=== PATIENT | male | born 1965 | race Caucasian/White ===

== ENCOUNTER 2021-03-22 00:13 | Inpatient (IN) | payer BC ==
[~2021-03-22] VITALS: Ht 182.9 cm; Wt 111.5 kg
[~2021-03-22 00:13] MED LIST: ONDA4TAB6 PO
[2021-03-22] MEDS ORDERED: ketorolac trometh. 30mg/ml inj. IV STA (00:29)
[2021-03-22] MEDS ORDERED: ondansetron/PF 4mg/2ml inj IV STA ×2 (00:29→03:26)
[2021-03-22] MEDS ORDERED: normal saline 1000ml 1,000 ML IVB ONE (00:30)
[2021-03-22 00:40] LABS: BASOPHILS # (AUTO) 0.1 X10'3 (0-0.2); EOSINOPHILS # (AUTO) 0.2 X10'3 (0-0.9); HEMATOCRIT 44.9 % (42.0-52.0); HEMOGLOBIN 15.6 g/dl (14.0-17.9); LYMPHOCYTES # (AUTO) 3.3 X10'3 (1.1-4.8); MEAN CORPUSCULAR HEMOGLOBIN 31.5 PG (27.0-31.0); MEAN CORPUSCULAR HGB CONC 34.7 g/dL (33.0-36.5); MEAN CORPUSCULAR VOLUME 90.9 FL (78-98); MEAN PLATELET VOLUME 9.3 FL (7.4-10.4); MONOCYTES # (AUTO) 0.9 X10'3 (0-0.9); MONOCYTES % (AUTO) 9.6 % (2-12); NEUTROPHILS # (AUTO) 5.4 X10'3 (1.8-7.7); NEUTROPHILS % (AUTO) 54.4 % (42-75); PLATELET COUNT 236 X10'3 (140-440); RED BLOOD COUNT 4.94 X10'6 (4.70-6.10); RED CELL DISTRIBUTION WIDTH 13.2 % (11.5-14.5); WHITE BLOOD COUNT 9.9 X10'3 (4.5-11.0)
[2021-03-22 00:53] LABS: ALANINE AMINOTRANSFERASE 71 U/L (12-78); ALBUMIN 4.2 G/DL (3.4-5.0); ALBUMIN/GLOBULIN RATIO 1.3 (1.1-1.5); ALKALINE PHOSPHATASE 77 IU/L (46-116); ANION GAP 8 (8-16); ASPARTATE AMINO TRANSFERASE 59 U/L (10-37); BILIRUBIN,TOTAL 0.4 MG/DL (0.1-1.0); BLOOD UREA NITROGEN 27 MG/DL (7-18); BUN/CREATININE RATIO 24.1 (5.4-32.0); CALCIUM 8.9 MG/DL (8.5-10.1); CHLORIDE 104 MMOL/L (99-107); CREATININE 1.12 MG/DL (0.60-1.10); GLUCOSE 132 MG/DL (70-104); SODIUM 140 MMOL/L (135-145); TOTAL CARBON DIOXIDE 27.7 MMOL/L (24-32); TOTAL PROTEIN 7.5 G/DL (6.4-8.2); eGFR 68 ML/MIN
[2021-03-22 01:39] LABS: CLARITY,URINE CLEAR (Clear); COLOR,URINE YELLOW (Yellow); GLUCOSE, URINE NEGATIVE (Neg); KETONES,URINE 15 mg/dl (Neg); LEUKOCYTE ESTERASE ,URINE NEGATIVE (Neg); NITRITES, URINE NEGATIVE (Neg); OCCULT BLOOD,URINE LARGE (Neg); PH,URINE 6.5 (4.8-8.0); PROTEIN,URINE NEGATIVE (Neg); UROBILINOGEN,URINE 0.2 E.U/dL (0.2-1.0)
[2021-03-22 01:59] LABS: UA COLLECTION TYPE VOIDED
[2021-03-22 02:07] LABS: BACTERIA,URINE NONE SEEN /HPF (Neg); MUCUS STRANDS NONE SEEN /LPF (Neg); RBC,URINE 20-50 /HPF (0-2); SQUAMOUS EPITHELIAL CELL,UR FEW /LPF (FEW); TRANSITIONAL EPI CELLS,URINE FEW /HPF; WBC,URINE 0-4 /HPF (0-4)
[2021-03-22] MEDS ORDERED: meperidine/PF 50mg/ml syringe IV PRN (03:25)
--- NOTE | 2021-03-22 03:26 | NUR ---
his pain and nausea is coming back. Dr Patrick was in to evaluate the patient and ordered pain meds, pt than told me his nausea is returning, so Dr Patrick asked I order some zofran, so done.
[2021-03-22] MEDS ORDERED: LISI20TA28 PO (03:41)
[2021-03-22] MEDS ORDERED: HYDROmorphone inj. 0.5 MG/0.5 ML DISP.SYRIN IV PRN (03:45)
[2021-03-22] MEDS ORDERED: HYDROcodone/acetaminophen 5mg/325mg tablet PO PRN (03:45)
[2021-03-22] MEDS ORDERED: diphenhydrAMINE 25mg capsule PO PRN (03:45)
[2021-03-22] MEDS ORDERED: morphine 2 MG/ML inj. syringe IV PRN (03:45)
[2021-03-22] MEDS ORDERED: mag hydrox/Alum hydrox/simeth 30ml oral suspension PO PRN (03:45)
[2021-03-22] MEDS ORDERED: acetaminophen 325mg tablet PO PRN ×2 (03:45)
[2021-03-22] MEDS ORDERED: bisacodyl 10mg suppository rectal RC PRN (03:45)
[2021-03-22] MEDS ORDERED: ondansetron/PF 4mg/2ml inj IV PRN (03:45)
[2021-03-22] MEDS ORDERED: ondansetron 4mg rapidly disintigrating tab PO PRN (03:45)
[2021-03-22] MEDS ORDERED: diphenhydrAMINE 50 mg/ml inj IV PRN (03:45)
[2021-03-22] MEDS ORDERED: magnesium hydroxide 30ml (MOM) UD suspension PO PRN (03:45)
[2021-03-22] MEDS ORDERED: acetaminophen 650mg rectal suppository RC PRN (03:45)
[2021-03-22] MEDS: dextrose 5%-1/2 normal saline 1,000 ML IV SCH ×3 (04:10→23:45)
[2021-03-22 04:19] LABS: MAGNESIUM 2.1 MG/DL (1.5-2.4); PARTIAL THROMBOPLASTIN TIME 26 SECONDS (22-32); PHOSPHORUS 3.5 MG/DL (2.3-4.5)
[2021-03-22] MEDS: morphine 2 MG/ML inj. syringe IV PRN ×3 (05:21→20:00)
--- NOTE | 2021-03-22 05:21 | NUR ---
pain is increasing, opted to adm morphine 2 mg IV with pt education.
[2021-03-22] MEDS: HYDROcodone/acetaminophen 10/325mg tab PO PRN ×4 (06:14→21:10)
--- NOTE | 2021-03-22 06:16 | NUR ---
increase in pain, adm. norco 10 and morphine 1 mg IV. He is nauseated as well. Not time for zofran
[2021-03-22 07:15] VITALS: BP 119/75
[2021-03-22] MEDS: pantoprazole 40mg Tablet.DR PO SCH (07:32)
[2021-03-22] MEDS ORDERED: potassium Cl 40MEQ/1/2NS 520ml 520 ML IV PRN (08:20)
[2021-03-22] MEDS ORDERED: potassium Cl 20 mEq SR tablet PO PRN ×2 (08:20)
[2021-03-22] MEDS ORDERED: magnesium Cl slow-release 64mg tablet PO PRN (08:20)
[2021-03-22] MEDS ORDERED: magnesium 4gm in 100ml NS 100 ML IV PRN (08:20)
[2021-03-22] MEDS: docusate sod 100mg capsule PO SCH ×2 (09:26→20:02)
[2021-03-22] MEDS: lisinopril 20mg tablet PO SCH ×2 (09:54→20:05)
[2021-03-22 11:00] VITALS: BP 122/83
[2021-03-22] MEDS: CefTRIAXone/D5W-Rocephin 1gm 50 ML IV SCH (11:14)
[2021-03-22 18:00] VITALS: BP 137/78
--- NOTE | 2021-03-22 18:25 | NUR ---
Problems reprioritized. Patient report given Yohannes LUNA, questions answered & plan of care reviewed with .
--- NOTE | 2021-03-22 18:31 | NUR ---
I have received report from CHERYL David and had the opportunity to ask questions and assume patient care.
[2021-03-22] MEDS: K and/or MAG REPLACEMENT MC SCH (20:00)
[2021-03-22] MEDS ORDERED: temazepam 15mg capsule PO PRN (21:00)
[2021-03-22] MEDS ORDERED: tamsulosin 0.4mg capsule PO ONE (21:00)
[2021-03-23] VITALS (13 sets, daily range): BP systolic 123–147; BP diastolic 73–85
[2021-03-23] MEDS: HYDROcodone/acetaminophen 10/325mg tab PO PRN ×4 (02:19→20:24)
[2021-03-23] MEDS: dextrose 5%-1/2 normal saline 1,000 ML IV SCH ×2 (02:20→13:15)
[2021-03-23 06:05] LABS: BASOPHILS # (AUTO) 0.1 X10'3 (0-0.2); BASOPHILS % (AUTO) 0.7 % (0-1); EOSINOPHILS # (AUTO) 0.2 X10'3 (0-0.9); HEMATOCRIT 39.3 % (42.0-52.0); HEMOGLOBIN 13.6 g/dl (14.0-17.9); LYMPHOCYTES % (AUTO) 24.4 % (21-51); MEAN CORPUSCULAR HEMOGLOBIN 31.6 PG (27.0-31.0); MEAN CORPUSCULAR HGB CONC 34.7 g/dL (33.0-36.5); MEAN CORPUSCULAR VOLUME 91.1 FL (78-98); MEAN PLATELET VOLUME 9.8 FL (7.4-10.4); MONOCYTES # (AUTO) 0.9 X10'3 (0-0.9); MONOCYTES % (AUTO) 10.6 % (2-12); NEUTROPHILS % (AUTO) 62.3 % (42-75); PLATELET COUNT 165 X10'3 (140-440); RED BLOOD COUNT 4.31 X10'6 (4.70-6.10); RED CELL DISTRIBUTION WIDTH 13.2 % (11.5-14.5); WHITE BLOOD COUNT 8.1 X10'3 (4.5-11.0)
--- NOTE | 2021-03-23 06:25 | NUR ---
Problems reprioritized. Patient report given, questions answered & plan of care reviewed with CHERYL Mckeon.
--- NOTE | 2021-03-23 06:26 | NUR ---
Problems reprioritized. Patient report given, questions answered & plan of care reviewed with CHERYL Mckeon.
--- NOTE | 2021-03-23 06:40 | NUR ---
Patient in room [facility]. I have received report from CHERYL Sheffield and had the opportunity to ask questions and assume patient care.
[2021-03-23 06:49] LABS: ALANINE AMINOTRANSFERASE 49 U/L (12-78); ALBUMIN 3.2 G/DL (3.4-5.0); ALBUMIN/GLOBULIN RATIO 1.2 (1.1-1.5); ALKALINE PHOSPHATASE 65 IU/L (46-116); ANION GAP 7 (8-16); ASPARTATE AMINO TRANSFERASE 33 U/L (10-37); BILIRUBIN,TOTAL 0.6 MG/DL (0.1-1.0); BLOOD UREA NITROGEN 15 MG/DL (7-18); BUN/CREATININE RATIO 12.4 (5.4-32.0); CALCIUM 8.2 MG/DL (8.5-10.1); CHLORIDE 108 MMOL/L (99-107); CREATININE 1.21 MG/DL (0.60-1.10); GLUCOSE 116 MG/DL (70-104); SODIUM 141 MMOL/L (135-145); TOTAL CARBON DIOXIDE 25.8 MMOL/L (24-32); TOTAL PROTEIN 5.8 G/DL (6.4-8.2); eGFR 62 ML/MIN
[2021-03-23] MEDS: morphine 2 MG/ML inj. syringe IV PRN (07:15)
[2021-03-23] MEDS: K and/or MAG REPLACEMENT MC SCH ×2 (08:00→20:00)
[2021-03-23] MEDS: pantoprazole 40mg Tablet.DR PO SCH (09:24)
[2021-03-23] MEDS: docusate sod 100mg capsule PO SCH ×2 (09:24→20:00)
[2021-03-23] MEDS: CefTRIAXone/D5W-Rocephin 1gm 50 ML IV SCH (09:25)
[2021-03-23] MEDS: lisinopril 20mg tablet PO SCH ×2 (09:25→20:25)
[2021-03-23] MEDS ORDERED: famotidine/PF 10 mg/ml inj IV ONE (14:00)
[2021-03-23] MEDS ORDERED: iohexol 300 MG/1 ML 50ml polymer ONE (14:10)
--- NOTE | 2021-03-23 14:20 | NUR ---
Report called to DINING ROOM SUPERVISORKyle LUNA
--- NOTE | 2021-03-23 14:25 | NUR ---
Pt off the floor to OR
[2021-03-23] MEDS ORDERED: fentaNYL/PF 50MCG/1 ML 2ML syringe ONE (15:08)
[2021-03-23] MEDS ORDERED: propofol inj 20 ML IV ONE (15:22)
--- NOTE | 2021-03-23 15:32 | NUR ---
ASSUME CARE VSS NO DISTRESS, FOLLOWS SIMPLE COMMANDS LMA PULLED CONT TO MONITOR Addendum: 03/23/21 at 1551 by Sherri Medina RN Amended: Links added.
[2021-03-23] MEDS ORDERED: ondansetron/PF 4mg/2ml inj IV PRN (15:55)
[2021-03-23] MEDS ORDERED: HYDROmorphone/PF 0.2 MG/ML SYRINGE IV PRN ×4 (15:55)
[2021-03-23] MEDS ORDERED: ringers solution, lacted 1,000 ML IV SCH (15:55)
[2021-03-23] MEDS ORDERED: meperidine/PF 25mg/ml syringe IV PRN (15:55)
--- NOTE | 2021-03-23 15:55 | NUR ---
PT AWAKE ALERT SITTING UP IN BED MAKENZIE PO'S DENIES PAIN, MEETS CRITERIA TO DC TO ROOM REPORT CALLED Addendum: 03/23/21 at 1556 by Sherri Medina RN Amended: Links added.
--- NOTE | 2021-03-23 15:55 | NUR ---
Report received from ASSEMBLER TRIM, Sherri Morales
[2021-03-23] MEDS ORDERED: HYDROmorphone 1 mg/ml syringe IV PRN (16:55)
--- NOTE | 2021-03-23 18:30 | NUR ---
Problems reprioritized. Patient report given, questions answered & plan of care reviewed with CHERYL Mckeon.
--- NOTE | 2021-03-23 18:30 | NUR ---
Problems reprioritized. Patient report given, questions answered & plan of care reviewed with CHERYL Sheffield.
[2021-03-23] MEDS ORDERED: lactobacillus rhamnosus 10,000 MMU CELLS/CAPSULE PO SCH (20:00)
--- NOTE | 2021-03-23 22:11 | NUR ---
2129: Patient left AMA. Patient declined to sign AMA paperwork. I asked if he would stay if we had him go into a private room and he declined. I educated him on the importance of staying and he still wanted to leave. Patients picked him up. Patient left slippers in room but all other belongings patient took with him.
== END 2021-03-23 21:30 | disposition left against medical advice (07) | DRG 661 ==
LOC: ER 00:14 → ED HOLD 03:42 → SUR 3N 06:55
PROVIDERS: ADMIT Family Medicine; ATTEND Family Medicine
PROC: BT1D1ZZ Fluoroscopy of Right Kidney, Ureter and Bladder using Low Osmolar Contrast (ICD-10-PCS; 2021-03-23)
PROC: 0T768DZ Dilation of Right Ureter with Intraluminal Device, Via Natural or Artificial Opening Endoscopic (ICD-10-PCS; principal; 2021-03-23 15:00)
DX: N13.2 Hydronephrosis with renal and ureteral calculous obstruction (principal); G89.4 Chronic pain syndrome; I10 Essential (primary) hypertension; M54.9 Dorsalgia, unspecified
CPT/HCPCS: 36415; 71045; 74176; 74420; 76000; 80053; 81001; 82948; 83735; 84100; 85025; 85610; 85730; 87081; 93005; 96361; 96374; 96375; 96376; 99285; G0378; J0696; J1170; J1885; J2175; J2270; J2405; J2704; J3010; J3490; J7030; Q9967